=== PATIENT | male | born 1930 | race Caucasian/White ===

== ENCOUNTER 2019-07-29 13:30 | Emergency (ER) | payer MEDICARE, OTHER ==
[~2019-07-29] VITALS: Ht 152.4 cm; Wt 45.4 kg
--- NOTE | 2019-07-29 13:44 | NUR ---
mando came in to the ER c/o r rib pain s/p fall 3 days ago, on room air, breathing evenly and unlabored. kept comfortable, will continue to monitor accordingly.
[2019-07-29] MEDS ORDERED: KETOROLAC TROMETHAMINE INJ 30 MG/ML VIAL IV ONE (14:30)
[2019-07-29] MEDS ORDERED: IV NS 0.9% 500 ML BAG IV ONE (14:30)
[2019-07-29] MEDS ORDERED: KETOROLAC TROMETHAMINE 15 MG/ML VIAL ONE (14:45)
[2019-07-29 14:48] LABS: BASOPHILS # (AUTO) 0.1 /CMM (0.0-0.2); BASOPHILS % (AUTO) 0.9 % (0.0-2.0); EOSINOPHILS % (AUTO) 1.2 % (0.0-6.0); HEMATOCRIT 41 % (39-51); HEMOGLOBIN 13.9 g/dL (13.5-17.5); LYMPHOCYTES # (AUTO) 0.7 /CMM (0.8-4.8); LYMPHOCYTES % (AUTO) 10.9 % (20.0-44.0); MEAN CORPUSCULAR HGB CONC 34 g/dl (31.0-36.0); MEAN CORPUSCULAR VOLUME 93 fL (80-96); MONOCYTES # (AUTO) 0.7 /CMM (0.1-1.30); MONOCYTES % (AUTO) 10.9 % (2.0-12.0); NEUTROPHILS # (AUTO) 5.1 /CMM (1.8-8.9); NEUTROPHILS % (AUTO) 76.1 % (43.0-81.0); PLATELET COUNT (AUTO) 246 /CMM (150-450); RED BLOOD CELL COUNT(AUTO) 4.43 MIL/uL (4.5-6.0); WHITE BLOOD COUNT (AUTO) 6.7 K/uL (4.3-11.0)
[2019-07-29 15:08] LABS: CALCIUM, SERUM 8.9 mg/dL (8.5-10.1); CARBON DIOXIDE 27 mmol/L (21-32); CHLORIDE 101 mmol/L (98-107); CREATININE 0.6 mg/dL (0.6-1.3); GLUCOSE 105 mg/dL (74-106); POTASSIUM 4.1 mmol/L (3.5-5.1); SODIUM SERUM 135 mmol/L (136-145); UREA NITROGEN, BLOOD 8 mg/dL (7-18)
[2019-07-29 15:16] LABS: ALANINE AMINOTRANSFERASE 19 U/L (12-78); ALBUMIN 3.1 g/dL (3.4-5.0); ALKALINE PHOSPHATASE 45 U/L (46-116); ASPARTATE AMINOTRANSFERASE 21 U/L (15-37); BILIRUBIN,DIRECT 0.2 mg/dL (0.0-0.2); BILIRUBIN,TOTAL 0.7 mg/dL (0.2-1.0); LIPASE 129 U/L (73-393); TOTAL PROTEIN, SERUM 6.4 g/dL (6.4-8.2)
--- NOTE | 2019-07-29 15:40 | NUR ---
RT AT BEDSIDE, TAUGHT PATIENT AND FAMILY HOW TO USE INCENTIVE SPIROMETER, PATIENT AND FAMILY VERBALIZED UNDERSTANDING
[2019-07-29] MEDS ORDERED: DOCUSATE SODIUM LIQ 100 MG/10 ML UDC ONE ×2 (15:50→15:54)
[2019-07-29] MEDS ORDERED: DOCUSATE SODIUM LIQ 100 MG/10 ML UDC PO ONE (16:00)
[2019-07-29 16:03] LABS: APPEARANCE,URINE Clear (CLEAR); BILIRUBIN,URINE Negative (NEGATIVE); BLOOD, URINE Trace-intact Ery/uL (NEGATIVE); COLOR,URINE Yellow (YELLOW); KETONES,URINE 15 (NEGATIVE); LEUKOCYTE ESTERASE ,URINE Negative (NEGATIVE); NITRITE, URINE Negative (NEGATIVE); PROTEIN,URINE Negative (NEGATIVE); UGLUCOSE Negative (NEGATIVE); UROBILINOGEN,URINE 0.2 EU/dL (0.2)
--- NOTE | 2019-07-29 16:27 | NUR ---
Patient discharged to home in stable condition. Written and verbal after care instructions given. Patient verbalizes understanding of instruction and RX. PT ambulatory with a steady gait.
[2019-07-29 16:28] VITALS: BP 146/88
[2019-07-29 16:35] LABS: BACTERIA,URINE Few /HPF (None Seen); WBC,URINE NONE SEEN /HPF (0-3)
== END 2019-07-29 16:37 | disposition home or self-care (01) ==
LOC: ER 13:31
DX: S22.41XA Multiple fractures of ribs, right side, initial encounter for closed fracture (principal); G47.00 Insomnia, unspecified; W18.30XA Fall on same level, unspecified, initial encounter; Y93.89 Activity, other specified; Y92.89 Other specified places as the place of occurrence of the external cause; Y99.8 Other external cause status
CPT/HCPCS: 36415; 71100; 72170; 80048; 80076; 81001; 83690; 84484; 85025; 96374; 99284; J1885; J7040; 81000-TC

== ENCOUNTER 2019-10-21 13:35 | Emergency (ER) | payer MEDICARE, OTHER ==
[~2019-10-21] VITALS: Ht 152.4 cm; Wt 57.2 kg
--- NOTE | 2019-10-21 13:39 | NUR ---
CAME IN FOR L SHOULDER PAIN S/P FALLING OFF THE BED 2 DAYS AGO, TO ER BED 10, HOOKED TO MONITOR, CHANGED TO HOSP GOWN, WARM BLANKET PROVIDED, AWAITING MD VICTORIA.
--- NOTE | 2019-10-21 14:05 | NUR ---
DR WHITAKER AT BEDSIDE FOR EVAL
--- NOTE | 2019-10-21 15:18 | NUR ---
Patient discharged to home with daughter in stable condition. Written and verbal after care instructions given. Patient and daughter verbalizes understanding of instruction.
[2019-10-21 15:19] VITALS: BP 132/74
== END 2019-10-21 15:19 | disposition home or self-care (01) ==
LOC: ER 13:35 → EDSEX 13:35 → ER 15:19
DX: S40.022A Contusion of left upper arm, initial encounter (principal); W06.XXXA Fall from bed, initial encounter; Y93.89 Activity, other specified; Y92.89 Other specified places as the place of occurrence of the external cause; Y99.8 Other external cause status
CPT/HCPCS: 73060-TC